=== PATIENT | female | born 1950 | race Caucasian/White ===

== ENCOUNTER → 2017-06-17 | Outpatient (CLI) | payer MEDICARE, OTHER ==
[~2017-06-17] MED LIST: BACTDS PO; CEPH-443 PO; IBUP800T25 PO; IODIXANOL LOCM 100 ML BTL ONE; IODIXANOL LOCM 50 ML BTL ONE; NITROGLYCERIN AEROSOL (4.9 GM) ONE; SOD CHLORIDE 0.9% 100 ML ONE
[2017-06-17 09:52] LABS: CREATININE 0.71 mg/dl (0.44-1.00)
--- NOTE | 2017-06-17 14:02 | RADRPT ---
PROCEDURE: CTA of the heart and coronary arteries. CLINICAL INDICATION: Dyspnea on exertion, evaluate for inferior wall defect identified on the prior perfusion examination. COMPARISON: No previous relevant images are available for comparison. TECHNIQUE: Multiphasic ECG-gated volumetric acquisition from the ascending aorta to the diaphragm pe rformed with intravenous contrast on a high-resolution multi detector scanner with multiphasic recon structions. Multiplanar reconstructions, three-dimensional reconstructions, as well as maximal inten sity projection images are produced and reviewed. One or more of the following dose reduction techni ques were used: Automated exposure control; Adjustment of the mA and/or kV according to patient size ; Use of iterative reconstruction technique; ECG dose modulation. CTDI = 8, 4, 45, 75 mGy. DLP = 201 0 mGy-cm. Stenosis classification of vessels greater than 1.5 mm in diameter: None 0%, Minimal 1-24%, Mild 25- 49%, Moderate 50-69%, Severe 70-99%, Occluded 100% CONTRAST: 100 mL of Omnipaque 350 intravenously without adverse event. FINDINGS: Overall exam quality and angiographic enhancement: Excellent. Origins and course of the coronary arteries: Normal. Coronary artery system dominance pattern: Right Total calcium score: 0 Nondiagnostic segments due to artifacts: None. RCA: Patent with no evidence of plaque. PLB: Patent with no evidence of plaque. PDA: Patent with no evidence of plaque. LM: Patent with no evidence of plaque. RI: Absent. LAD: Patent with no evidence of plaque. Superficial bridging is present in the midsegment of the ves naomy over a length of 60 mm and a depth of less than 1 mm. Ds: Patent with no evidence of plaque. LCX: Patent with no evidence of plaque. OMs: Patent with no evidence of plaque. Pericardium: Normal. Pericardial effusion: None. Heart size: Normal. Aortic valve: Trileaflet morphology. Normal systolic excursion. Normal diastolic coaptation. Minimal thickening and punctate calcification are noted. Mitral valve: Normal morphology. No evidence of prolapse on systolic images. No evidence of thickeni ng or calcification. Myocardial attenuation: Lipid attenuation is observed within the right ventricular free wall and rig ht ventricular outflow tract likely representing physiologic infiltration. Intracardiac enhancement: No left-sided filling defects to suggest the presence of mass or thrombus . Left atrial appendage is well opacified. Extracardiac findings: Visualized thoracic aorta: Normal caliber. No significant atherosclerotic changes. Pulmonary arteries: Normal caliber. No evidence of central filling defect. Pulmonary veins: Conventional pulmonary venous return. Lungs: No acute appearing air space infiltrates. 7 mm bleb noted in the right upper lobe. No suspic ious pulmonary nodules. Visualized mediastinum: No mass or fluid collection. No lymphadenopathy. Visualized osseous structures: Normal. Visualized abdomen: 7 mm cortical cyst of the left kidney is noted. IMPRESSION: Total calcium score: 0 Normal examination of the coronary arteries without evidence of plaque or stenosis. No evidence of areas of focal thinning or low attenuation changes to suggest the presence of a prior ischemic injury. RPTAT: AADD .Rogers Wheeler MD, MD Date Time Electronically viewed and signed by .Rogers Wheeler MD, on 06/17/2017 14:02 .B/
== END | disposition home or self-care (01) ==
LOC: LAB 09:05
PROVIDERS: ATTEND Internal Medicine Interventional Cardiology
DX: R06.00 Dyspnea, unspecified (principal)
CPT/HCPCS: 75571; 75574; 82565; 84520; Q9967